=== PATIENT | male | born 1995 | race African-American/Black ===

== ENCOUNTER 2016-12-04 03:54 | Emergency (ER) | payer OTHER ==
[~2016-12-04] VITALS: Ht 175.3 cm; Wt 90.7 kg
[2016-12-04 03:56] VITALS: BP 120/77
[2016-12-04] MEDS ORDERED: DEXAMETHASONE 4 MG TABLET ONE (04:16)
[2016-12-04] MEDS ORDERED: DEXAMETHASONE 4 MG TABLET PO ONE (04:30)
[2016-12-04] MEDS ORDERED: AMOXICILLIN 500 MG CAPSULE PO ONE (04:30)
== END 2016-12-04 04:44 | disposition home or self-care (01) ==
LOC: ED 04:42
DX: J02.0 Streptococcal pharyngitis (principal); J45.909 Unspecified asthma, uncomplicated
CPT/HCPCS: 99283